=== PATIENT | female | born 1950 | race Caucasian/White ===

== ENCOUNTER 2023-12-26 09:21 | Emergency (ER) | payer SELFPAY ==
[2023-12-26 09:23] VITALS: BP 131/86
--- NOTE | 2023-12-26 10:23 | CON.NEURO4 ---
Addendum entered and electronically signed by Crow Mosquera MD 12/26/23 13:04:
I saw and evaluate the patient I reviewed the note by Clarisa Cooper agree to find the following comments:
73-year-old left-handed woman with no diagnosed medical history presented hospital with transient right-sided paresthesia of the right face arm and leg happening yesterday evening lasting approximately 20 minutes with complete resolution. Patient
feels like she is back to normal at this point with no residual symptoms. She has no diagnosed medical history does not usually see doctors regularly has no primary care doctor no chronic medications. No previous history of stroke or TIA or
migraine headaches. Feels fine with no complaints currently.
Unremarkable neurologic examination normal mental status no cranial nerve deficits, motor function is normal no pronator drift no weakness no tremor normal finger-nose testing bilaterally.
Carotid ultrasound images and report reviewed less than 50% stenosis bilaterally
Cholesterol panel reviewed LDL very high
Assessment: Definite TIA of the left side of the brain. Risk factors are age previously undiagnosed hyperlipidemia. Patient does not feel that she would be able to tolerate an MRI of the brain even with lorazepam for sedation.
Recommendations
-Strongly recommend getting a primary care doctor and having neurology office visit in approximate 4 weeks
-Patient does not feel that she can tolerate MRI brain even with lorazepam sedation
-Check carotid ultrasound
-Check CT head noncontrast
-Give loading doses aspirin 325 and clopidogrel 300 mg to start DAPT therapy for 21 days and then aspirin 81 mg daily for life
-Recommend 40 mg atorvastatin daily given high LDL
-Outpatient transthoracic echocardiogram short-term cardiac monitoring
-Discussed signs and symptoms of stroke and going to the nearest ER or calling 911 since possible
-If CT head with no concerning features patient would be acceptable for discharge home as carotid ultrasound demonstrates no significant carotid stenosis
Original Note:
Documented by User: Clarisa Cohen NP 12/26/23 11:48
Consultation - Neurology 4
-
CONSULTING PHYSICIAN: Amara Mosquera MD
REFERRING PHYSICIAN: ER/Dr. Burnham
DICTATED BY: SARTHAK Bruce
DATE/TIME OF REQUEST: 12/26/23
DATE/TIME OF CONSULTATION: 12/26/23
Reason for Consultation: TIA
History of Present Illness:
This is a 73-year-old left-handed female who has presented to the hospital with report of transient right-sided numbness. Patient reports feeling in her usual state yesterday (12/25/23). She did some work in her garden, then came inside and had
dinner, read for some time, and then sat down to watch TV. Around 1930 she reports that her right hand and entire arm suddenly felt numb, like a novocaine sensation. She stood up to walk and noticed that the numbness was in her right foot/leg and
also her right face. Her son returned to the house 15 minutes after symptom onset, and she reports at that time the numbness has started to resolve. 20 minutes after symptom onset she was back to normal. She denies any headache, vision changes,
speech/swallow difficulty, weakness, nausea, chest pain, palpitations, and shortness of breath. She does report having one episode of diarrhea after this event. Otherwise, she has been at her baseline since then. Her family finally convinced her to
be evaluated this morning. She is not a candidate for TNK/IAT due to being outside of the time window and NIHSS 0. She denies any significant medical history, she does not have a primary care provider and hasn't been to a doctor in years. She denies
any history of migraines, TIA, stroke, or events like this in the past and she is not taking any blood-thinning medications.
Past Medical History: Kidney stones.
Surgical History: Cholecystectomy, Lasik eye surgery
Family History: Maternal uncle- stroke in his 50's.
Social History: Occasional alcohol. Denies tobacco and illicit drug use. Retired from working in IT.
Allergies: No known allergies.
Home Medications: None.
Review of Symptoms:
Patient denies any fever, headache, chest pain, shortness of breath, GI or symptoms.
�Per the HPI.�All systems are reviewed negative except above.
Physical Exam:
The patient is afebrile, abdomen is nondistended, breathing is unlabored, skin is warm and dry, no edema.
NIH Stroke Scale:
I performed the NIH stroke scale on the patient on 12/26/23 at 1030. The patient scored 0 points on the NIH stroke scale assessment, which were assigned as follows: See below.
Neurologic Examination:
The patient is awake, alert and oriented x 3. She is able to follow commands and answer questions appropriately. There is no aphasia or dysarthria. On cranial nerve assessment, pupils are 3 mm bilateral, round and reactive to light and
accommodation. Visual lemos are full. Extraocular movements are intact. Facial sensations are intact and bilaterally symmetrical, there is no facial asymmetry. Hearing is intact bilaterally to normal conversation volume. Tongue palate and uvula are
midline. Sternocleidomastoid strengths are full bilaterally. Motor strengths are 5/5 bilateral upper and lower extremities on medical research [place] scale. There is no drift or involuntary movement noted. Deep tendon reflexes are 2+ bilateral
upper and lower extremities and Babinski is absent bilaterally. Sensations of touch, temperature and vibration are intact and bilaterally symmetrical. There was no extinction noted on double simultaneous stimulation. Coordination is intact by finger
to nose bilaterally.
Lab Results: See below.
Neuro Imaging: pending
Differentials for the patient's presentation include:
1. TIA or small ischemic infarct likely producing patient's symptoms.
2. Hyperlipidemia.
Patient has the following risk factors for their symptoms: HLD, age
IV Tenecteplase/IAT candidacy: Not a candidate due to outside of time window, resolution of symptoms, NIHSS 0.
Recommendations:
-Provide a loading dose of aspirin 325mg and Plavix 300mg x1 now.
-Continue DAPT with aspirin 81mg and Plavix 75mg daily x21 days. After 21 days, discontinue Plavix and continue aspirin 81mg daily only, indefinitely.
-CT head noncontrast pending.
-Carotid ultrasound pending.
-Would like to obtain MRI brain noncontrast but patient is severely claustrophobia and refuses this even with sedation.
-LDL goal <70. LDL is 175. Patient says she will not take cholesterol medication but initiating atorvastatin 40mg daily is highly recommended.
-Goal normoglycemia, hbA1c is pending.
-Checking blood work for metabolic abnormalities.
-NIHSS and neurological checks per unit guidelines.
-Provide patient with a stroke education packet.
-Patient should follow-up with Neurology as an outpatient, may see the [facility] or one of the physicians.
Discussed patient care with: Dr. Mosquera, the patient
Vital Signs and Labs
-
Vital Signs and Labs:
Vital Signs
Temp Pulse Resp BP Pulse Ox
98.3 F 74 16 131/86 98
12/26/23 09:23 12/26/23 09:23 12/26/23 10:10 12/26/23 09:23 12/26/23 09:23
Lab Results
12/26/23 10:44
12/26/23 10:44
PT 12.9 Sec (11.4-14.6) 12/26/23 10:44
INR 0.99 12/26/23 10:44
APTT 34.5 Sec (23.4-35.0) 12/26/23 10:44
Sodium 137 mmol/L (135-145) 12/26/23 10:44
Potassium 4.7 mmol/L (3.5-5.1) 12/26/23 10:44
BUN 19 mg/dl (7-17) H 12/26/23 10:44
Glucose 103 mg/dl (70-99) H 12/26/23 10:44
Calcium 9.7 mg/dl (8.4-10.2) 12/26/23 10:44
LDL Cholesterol, Calc 175 mg/dl 12/26/23 10:44
NIH Stroke Score
Subsequent NIH Scale
Date of Subsequent NIH Scale: 12/26/23
Time of Subsequent NIH Scale: 10:30
NIH Stroke Score
Level of Consciousness: 0 - Alert
LOC Questions: 0-Answers both correctly
LOC Commands: 0-Performs both correctly
Best Horizontal Gaze: 0-Normal
Visual Lemos: 0=Normal, no visual loss
Facial Palsy: 0=Normal, symmetrical
Motor - Right Arm: 0=No drift 10 seconds
Motor - Left Arm: 0=No drift 10 seconds
Motor - Right Le-No drift 5 seconds
Motor - Left Le-No drift 5 seconds
Limb Ataxia: 0-Absent
Sensation: 0-Normal
Best Language: 0-No aphasia
Dysarthria: 0-Normal
Extinction and Inattention: 0-No abnormality
Total Score:: 0
Modified [place] (mRS) Score
Modified [place] Scale (mRS): No symptoms
Score: 0
Alteplase Contraindication
Inclusion and Exclusion criteria reviewed: Yes
Reasons for NON-Tx with Thrombolytics ABSOLUTE Exclusions: Greater than 4.5 hrs from onset of sxs

Documented by User: Crow Mosquera MD 12/26/23 12:59
NIH Stroke Score
NIH Stroke Score
Total Score:: 0
Modified [place] (mRS) Score
Score: 0
[2023-12-26 11:05] LABS: % Basophils 0.5 % (0-2); % Eosinophils 1.1 % (0-6); % Immature Granulocytes 0.3 % (0-0.5); % Lymphocytes 31.6 % (20.5-51.1); % Neutrophils 56.5 % (42.2-75.2); Absolute Eosinophils 0.1 10^3/uL (0-0.7); Absolute Lymphocytes 2.1 10^3/uL (1.2-3.4); Absolute Monocytes 0.7 10^3/uL (0.1-0.6); Absolute Neutrophils 3.8 10^3/uL (1.4-6.5); Hematocrit 40.5 % (37.0-47.0); Hemoglobin 14.1 g/dL (12.0-16.0); Mean Corp Hgb Conc. 34.8 g/dL (33.0-37.0); Mean Corpuscular Hgb 29.9 pg (27.0-31.0); Mean Platelet Volume 10.1 fL (7.4-10.4); Nucleated Red Blood Cells % 0 %; Platelet Count 293 10^3/uL (130-400); Red Blood Cell Count 4.71 10^6/uL (4.20-5.40); Red Cell Dist. Width 14.4 % (11.5-14.5); White Blood Cell Count 6.6 10^3/uL (4.8-10.8)
[2023-12-26 11:13] LABS: INR 0.99; PT 12.9 Sec (11.4-14.6)
[2023-12-26 11:14] LABS: APTT 34.5 Sec (23.4-35.0)
[2023-12-26 11:16] LABS: ALT (SGPT) 21 U/L (0-35); AST (SGOT) 26 U/L (14-36); Albumin 4.5 g/dl (3.5-5.0); Alkaline Phosphatase 78 U/L (38-126); Blood Urea Nitrogen 19 mg/dl (7-17); Calcium 9.7 mg/dl (8.4-10.2); Carbon Dioxide 25 mmol/L (22-30); Chloride 106 mmol/L (98-107); Glucose 103 mg/dl (70-99); Potassium 4.7 mmol/L (3.5-5.1); Sodium 137 mmol/L (135-145); Total Bilirubin 0.6 mg/dl (0.2-1.3); Total Protein 7.3 g/dl (6.3-8.2); eGFR > 60.00
--- NOTE | 2023-12-26 11:17 | ED.CVA ---
History of Present Illness
General
Chief Complaint: CVA/TIA Symptoms
Source: patient
Exam Limitations: none
Time Seen by Provider: 12/26/23 10:03
Nursing documentation reviewed up to this point in time: agreed with
Onset of Stroke Symptoms
Onset of symptoms known: No
Time pt last seen normal is known: No
History of Present Illness
History of Present Illness:
73-year-old female with a past medical history of hyperlipidemia who presents to the emergency room for evaluation after an episode of right-sided weakness/numbness. Patient reports that she was sitting on the couch watching TV last night around
7:30 PM. She says that she had sudden onset of numbness of the entire right side of her body�she says the face, arm, leg, trunk were all numb. She says that she is not sure if she was weak but did notice that she was having trouble walking/bearing
weight on her right leg. She says that the symptoms lasted for about 20 minutes and then they resolved completely and she is now asymptomatic. She denies any associated vision changes or speech issues. She denies any associated facial droop�she
says her son was able to evaluate her at the time. She denies any associated headache or neck pain. She says she has never had similar symptoms in the past. This morning decided she should come to the emergency room to be evaluated. She denies
any history of stroke. She denies taking any medications at present.
Review of Systems
Review of Systems
All Other Systems: ROS reviewed and negative except as documented in HPI and ROS
Constitutional: Denies fever
Respiratory: Denies trouble breathing
Cardiac: Denies chest pain
ABD/GI: Denies abdominal pain, nausea or vomiting
: Denies flank pain
Musculoskeletal: Denies neck pain or back pain
Neurological: Reports weakness and numbness; Denies dizzy or headache
Phy Exam
Physical Exam
Physical Exam:
General: Awake, alert, oriented x3; no acute distress
Head: Normocephalic, atraumatic
Eyes: Conjunctiva normal, EOMI, pupils equal round and reactive to light bilaterally
Throat: Airway intact, handling secretions
Neck: Trachea midline, supple without meningismus
Lungs: Clear to auscultation bilaterally, no wheezing, rales, rhonchi
Heart: Regular rate and rhythm, no murmurs, gallops, or rubs
Abd: Soft, non distended, nontender
Neuro: Cranial nerves intact 2 through 12, speech is fluent with no dysarthria or aphasia, no limb ataxia, motor and sensory function is intact and symmetric upper and lower extremities both proximally and distally
Skin: no rash
Extremities: No edema in extremities, equal pulses in all extremities
Scores
NIH Stroke Score
Level of Consciousness: 0 - Alert
LOC Questions: 0-Answers both correctly
LOC Commands: 0-Performs both correctly
Best Horizontal Gaze: 0-Normal
Visual Lemos: 0=Normal, no visual loss
Facial Palsy: 0=Normal, symmetrical
Motor - Right Arm: 0=No drift 10 seconds
Motor - Left Arm: 0=No drift 10 seconds
Motor - Right Le-No drift 5 seconds
Motor - Left Le-No drift 5 seconds
Limb Ataxia: 0-Absent
Sensation: 0-Normal
Best Language: 0-No aphasia
Dysarthria: 0-Normal
Extinction and Inattention: 0-No abnormality
Total Score:: 0
Heart Failure Risk
Heart Failure Risk Score: Not Applicable
Heart Score for Chest Pain Patients
STEMI patient?: Not applicable
Withdrawal Assessment of Alcohol
Withdrawal Assessment Completed?: Not applicable
Course
Orders/Labs/Results
Orders:
Orders
12/26/23 10:15
CT Head W/o Iv Contrast Urgent
Comment:
Reason For Exam: TIA (R hemiparesis)
US Carotid [US Cerebrovascular] Urgent
Comment:
Reason For Exam: TIA (R hemiparesis)
12/26/23 10:16
Electrocardiogram (*1) Urgent
Reason for Study: TIA/Stroke
NEUROLOGY CONSULT Urgent
Consulting Provider: Crow Mosquera
Was physician already notified: Yes
EKG- Treatment ONCE
12/26/23 10:44
Cardiovascular Evaluation Urgent
Comment: ADD ON
Complete Blood Count/With Diff Urgent
Comprehensive Metabolic Panel Urgent
Ferritin Urgent
Comment: ADD ON
Folate Urgent
Comment: ADD ON
Glycohemoglobin (HgbA1c) Urgent
PTT Urgent
Prothrombin Time Urgent
TSH Reflex To Free T4 Urgent
Comment: ADD ON
Vitamin B12 Urgent
Comment: ADD ON
12/26/23 10:45
Add On- LAB Routine
Tests Added?: folate, ferritin, TSH reflex, B12, lipid panel, hbA1c
12/26/23 11:43
Patient Education As Directed
Type: Stroke education packet
12/26/23 13:09
Aspirin 325 mg PO NOW STA
Atorvastatin [Lipitor] 40 mg PO NOW STA
Clopidogrel Bisulfate [Plavix] 300 mg PO NOW STA
Abnormal Lab Results
12/26/23
10:44
Absolute Monos (auto) 0.7 H 10^3/uL
(0.1-0.6)
Monocytes % 10.0 H %
(1.7-9.3)
BUN 19 H mg/dl
(7-17)
Glucose 103 H mg/dl
(70-99)
Triglycerides 159 H mg/dl
(10-149)
Total Cholesterol 276 H mg/dl
(50-199)
VLDL Cholesterol, Calc 31 H mg/dl
(0-30)
12/26/23 10:44
12/26/23 10:44
Vital Signs
Initial and Last Documented VS:
Initial Vital Signs
Temp Pulse Resp BP Pulse Ox
36.8 C 74 16 131/86 98
12/26/23 09:23 12/26/23 09:23 12/26/23 09:23 12/26/23 09:23 12/26/23 09:23
Last Documented Vital Signs
Temp Pulse Resp BP Pulse Ox
36.8 C 71 16 129/74 96
12/26/23 09:23 12/26/23 12:16 12/26/23 12:16 12/26/23 12:05 12/26/23 12:15
MDM/Problems Addressed
Differential Diagnosis Includes:
TIA/stroke, complex migraine, seizure
MDM/Problems Addressed:
73-year-old female presents to the emergency room after approximately 20-minute episode of right-sided numbness with possibly some weakness as well. Completely resolved and she is now asymptomatic. Vital signs are normal here. Physical exam as
above. Will plan to check basic labs including a CBC and a CMP. Will check an EKG. Will check CT head and carotid ultrasound. Case discussed with neurology for consultation.
Neurology evaluated patient at bedside, case discussed in ER�agreed with workup as above, can likely load with aspirin and Plavix and discharge on dual antiplatelet if imaging unremarkable.
CT head negative for any acute pathology. Carotid ultrasound shows no significant stenosis. Labs reviewed and CBC and CMP showed no clinically significant abnormalities. EKG shows sinus rhythm. Patient did have hyperlipidemia on testing of
cholesterol. Blood pressure has been stable. She remains asymptomatic. Discussed with neurology recommended discharge on atorvastatin 40 mg nightly, aspirin 81 mg daily, Plavix 75 mg x 3 weeks. Recommended loading with full dose aspirin and 300
mg Plavix today. I spoke to the patient at length and she feels comfortable with this plan. Will follow-up with neurology as an outpatient. We spoke about return precautions and all questions were answered.
Chronic conditions affecting care:
Hyperlipidemia
*Radiology
Radiology exam reviewed: radiology read reviewed
*Pulse Oximetry
Patient hypoxic: no
*Critical Care Note
Total Time (30-74mins, 75-104mins- exclusive of procedures): Not Applicable
Data Reviewed
Source: patient
Patient Management
Discussion with other providers: Mantel Craftsman (Discussed with neurology)
ED Attending Note
-
Portions of this chart may have been created with voice recognition software.� Occasional wrong word or��sound alike� substitutions may have occurred due to the inherent limitations of voice recognition software.
Discharge Plan
Departure
Patient Disposition: Home (Routine Discharge)
Date of Disposition: 12/26/23
Time of Disposition: 14:05
Patient with high blood pressure during this ER visit?: No
Discharge Problem:
TIA (transient ischemic attack), Hyperlipidemia
Instructions: Transient Ischemic Attack (DC)
Prescriptions:
New
aspirin 81 mg tablet,chewable
81 mg PO DAILY Qty: 30 0RF
atorvastatin 40 mg tablet
40 mg PO HS Qty: 30 0RF
clopidogrel 75 mg tablet
75 mg PO DAILY 21 Days Qty: 21 0RF
Referrals:
Crow Mosquera MD [Active] - Call in 1-3 days for appt (Neurology--call for appointment first thing Friday)
NONE,* [Family Provider] -
Activity Restrictions/Additional Instructions:
Thank you for visiting the Emergency Department at [facility].
1. Please schedule a follow up appointment as directed. Call first thing tomorrow morning to make an appointment.
2. If indicated, please take your medications as instructed and indicated on discharge paperwork.
3. If any of your symptoms do not improve, or persist, or become more severe within 6-12 hours, please return to the emergency department for further care.
4. Please return to the emergency department if you develop a headache, neck pain/stiffness, fever greater than 100.4F, chest pain, shortness of breath, persistent nausea, vomiting, slurred speech, difficulty walking, numbness/tingling, weakness,
signs of infection or any other symptoms that are worrisome to you.
Please call [phone] if you have any questions.
Interventions
Interventions:
*Risk Screen - Suicide Last Done: 12/26/23 09:23
*General Assessment Last Done: 12/26/23 09:23
*Neglect/Abuse Screening Last Done: 12/26/23 09:23
*ED COVID-19 Vaccine History Last Done: 12/26/23 10:10
ED- Pulmonary Assessment Last Done: 12/26/23 10:11
ED- Neurological Assessment Last Done: 12/26/23 10:11
ED- Cardiac Assessment Last Done: 12/26/23 10:11
ED Swallowing Screen Last Done: 12/26/23 10:11
Discharge Date and Time
Print Language: KITTITIAN
ABCD2 SCore for TIA
-
Patient age > or = to 60 years: Yes
BP >/= 140/90mmHg; Initial SBP >/= 140mmHg or DBP >/= 90mmHg: No
Clinical features of TIA: Unilateral Weakness
Duration of Symptoms: 10 - 59 minutes
History of Diabetes: No
Total Score: 4
[2023-12-26 11:33] LABS: HDL Cholesterol 70 mg/dl; LDL Cholesterol, Calculated 175 mg/dl; Total Cholesterol 276 mg/dl (50-199); Triglyceride 159 mg/dl (10-149); Very Low Density Lipoprotein 31 mg/dl (0-30)
[2023-12-26 11:47] LABS: Glycohemoglobin (HgbA1c) 5.5 % (4.0-5.6)
[2023-12-26 12:05] VITALS: BP 129/74
[2023-12-26 12:11] LABS: TSH Reflex To Free T4 4.63 uIU/ml (0.47-4.68)
[2023-12-26 12:15] LABS: Ferritin 96.1 ng/ml (11.1-264.0)
[2023-12-26 12:46] LABS: Folate 10.7 ng/ml (2.76-20); Vitamin B12 468 pg/ml (239-931)
[2023-12-26] MEDS: ASPIRIN 325 MG PO (14:26)
[2023-12-26] MEDS: PLAVIX 300 MG PO (14:26)
[2023-12-26 14:30] VITALS: BP 130/80
== END 2023-12-26 14:38 | disposition home or self-care (01) ==
LOC: EMR 09:21
PROVIDERS: CONSULT PHYSICIAN Student in an Organized Health Care Education/Training Program; EMERGENCY PHYSICIAN Emergency Medicine
DX: E78.5 Hyperlipidemia, unspecified (principal); G45.9 Transient cerebral ischemic attack, unspecified
CPT/HCPCS: 99285; 70450; 80053; 80061; 82607; 82728; 82746; 83036; 84443; 85025; 85610; 85730; 93005; 93880